=== PATIENT | female | born 1955 | race Caucasian/White ===

== ENCOUNTER 2018-05-30 17:06 | Emergency (ER) | payer OTHER ==
[~2018-05-30] VITALS: Ht 170.2 cm; Wt 95.3 kg
[~2018-05-30 17:06] MED LIST: CIPROFLOXACIN500 M1 PO; NOHOMEMEDICATIONS; NORCO 5-325 TA1 EACH PO; PYRIDIUM200 MG PO; TOBREX5 ML OP
[2018-05-30 17:48] LABS: URINE BILIRUBIN NEGATIVE (Negative); URINE BLOOD NEGATIVE (Negative); URINE CLARITY CLEAR; URINE COLOR STRAW; URINE GLUCOSE-RANDOM 3+ (Negative); URINE KETONES NEGATIVE (Negative); URINE LEUKOCYTES-REFLEX NEGATIVE (Negative); URINE NITRITE-REFLEX NEGATIVE (Negative); URINE PROTEIN NEGATIVE (Negative); URINE SPECIFIC GRAVITY <= 1.005 (1.005-1.030); URINE UROBILINOGEN 0.2 E.U./dl (0.2-1.0)
[2018-05-30 18:57] LABS: ABSOLUTE EOSINOPHILS 0.1 thou/uL (0.0-0.7); ABSOLUTE MONOCYTES 0.6 thou/uL (0.0-1.2); ABSOLUTE NEUTROPHILS 5.3 thou/uL (1.6-8.1); BASOPHILS 0.6 %; EOSINOPHILS 1.1 %; HEMATOCRIT 47.2 % (37.0-47.0); HEMOGLOBIN 15.8 gm/dL (12.0-15.0); LYMPHOCYTES 24.8 %; MCH 29.3 pg (26.0-34.0); MCHC 33.4 g/dL (28.0-37.0); MCV 87.6 fL (80.0-100.0); MONOCYTES 7.4 %; MPV 7.9 fl. (7.2-11.1); NUCLEATED RBCS 0 /100WBC; PLATELET COUNT* 276 thou/uL (150-400); POLYS 66.1 %; RBC 5.39 mil/uL (4.20-5.00)
[2018-05-30 19:04] LABS: CALCIUM 9.7 mg/dL (8.5-10.1); CREATININE 0.7 mg/dL (0.6-1.3); POTASSIUM 3.9 mmol/L (3.5-5.1)
[2018-05-30 19:09] LABS: ALBUMIN 3.7 g/dL (3.4-5.0); TOTAL BILIRUBIN 0.4 mg/dL (<0.1-1.0); TOTAL PROTEIN 7.9 g/dL (6.4-8.2)
[2018-05-30] MEDS ORDERED: METFORMIN HCL500 MG PO (19:24)
[2018-05-30 19:45] VITALS: BP 141/81
== END 2018-05-30 19:46 | disposition home or self-care (01) ==
LOC: M.ERS 17:06
PROVIDERS: Nurse Practitioner Family
DX: E11.65 Type 2 diabetes mellitus with hyperglycemia (principal)